=== PATIENT | female | born 1960 | race Caucasian/White ===

== ENCOUNTER → 2017-12-11 09:17 | Outpatient (CLI) | payer OTHER, BC, SELFPAY ==
--- NOTE | 2017-12-11 | DI.MG.S_ITS ---
BILATERAL DIGITAL SCREENING MAMMOGRAM 3D/2D WITH CAD: 12/11/2017 CLINICAL: Patient presents for routine screening. S/P bilateral augmentation. Comparison is made to exams dated: 10/31/2016 mammogram, 10/21/2015 mammogram, and 09/16/2014 mammogram - [facility]. The tissue of both breasts is heterogeneously dense. This may lower the sensitivity of mammography. Current study was also evaluated with a Computer Aided Detection (CAD) system. There are post operative findings in the left breast. Bilateral breast implants are intact. No significant masses, calcifications, or other findings are seen in either breast. There has been no significant interval change. IMPRESSION: NEGATIVE There is no mammographic evidence of malignancy. A 1 year screening mammogram is recommended. This exam was interpreted at Station ID: [id number]. NOTE: For mammograms, a report in lay terms will be sent to the patient. Approximately 15% of breast malignancies will not be visualized mammographically. In the management of a palpable breast mass, a negative mammogram must not discourage biopsy of a clinically suspicious lesion. Electronically Signed By: Estuardo pickering/brian:12/11/2017 15:50:24 letter sent: Normal Exam ACR BI-RADS Category 1: Negative 3341F
== END ==
PROVIDERS: Family Provider Physician Assistant; PCP Family Medicine; Visit Provider Family Medicine
DX: Z12.31 Encounter for screening mammogram for malignant neoplasm of breast (principal); Z98.82 Breast implant status
CPT/HCPCS: 77063; 77067

== ENCOUNTER → 2018-01-21 10:01 | Outpatient (CLI) | payer OTHER, BC, SELFPAY | PROVIDERS: Family Provider Physician Assistant; PCP Family Medicine; Visit Provider Family Medicine | DX: S01.301A Unspecified open wound of right ear, initial encounter (principal) | CPT/HCPCS: 87070; 87075; 87077; 87147; 87205 ==

== ENCOUNTER → 2018-03-19 10:53 | Outpatient (CLI) | payer OTHER, BC, SELFPAY ==
--- NOTE | 2018-03-19 | DI.MRI.S_ITS ---
PROCEDURE: MR LUMBAR SPINE WO CON INDICATIONS: LOW BACK PAIN TECHNIQUE: Noncontrast sagittal T1 spin echo and T2 fast echo, sagittal STIR, axial T1 and T2 fast spin echo through the lumbar spine. In cases with scoliosis, additional coronal T2 fast spin echo may be performed. COMPARISON: [facility], CR, XR LUMBAR SPINE 2 OR 3 VIEWS, 02/19/2018, 9:49. FINDINGS: Image quality: Excellent. Alignment and Curvature: There is trace L2-L3 and L3-L4 retrolisthesis. There is trace L4-L5 anterolisthesis. Bones: Reactive endplate change is noted adjacent to the L2-L3, L3-L4 and L4-L5 discs. No acute vertebral body compression fractures. Schmorl's nodes noted in the superior endplate of the L3 and L4 vertebral bodies. Spinal Cord: Conus medullaris terminates at the L1 level. Visualized cord demonstrates normal signal and size. Paraspinous Soft Tissues: No paravertebral masses. L1-L2: Normal appearance. L2-L3: Loss of disc signal and height. Mild, diffuse disc bulge. Mild narrowing of the central canal. Mild bilateral neural foraminal narrowing. No neural impingement. L3-L4: Loss of disc signal. Mild, diffuse disc bulge. Mild bilateral facet hypertrophy. Mild to moderate narrowing of the central canal. Mild bilateral neural foraminal narrowing. No neural impingement. L4-L5: Loss of disc signal and height. Mild, diffuse disc bulge. Mild to moderate facet hypertrophy. Mild to moderate narrowing of the central canal. Mild bilateral neural foraminal narrowing. No neural impingement. Focal high intensity zones noted in the posterior annulus compatible with fissures. L5-S1: Disc has a normal appearance. Mild bilateral facet hypertrophy. No central stenosis. No neural foraminal narrowing. No neural impingement. IMPRESSION: 1. Multilevel degenerative disc disease. 2. Multilevel facet arthropathy. 3. Mild to moderate L3-L4 and L4-L5 central canal narrowing. Mild L2-L3 central canal narrowing. 4. Mild bilateral L2-L3, L3-L4 and L4-L5 neural foraminal narrowing. 5. No neural impingement. 6. L4-L5 disc annulus fissures. Dictated by: Cyndee Molina MD, PhD on 03/19/2018 at 13:45 Approved by: Cyndee Molina MD, PhD on 03/19/2018 at 13:52
== END ==
PROVIDERS: Family Provider Physician Assistant; PCP Family Medicine; Visit Provider Orthopaedic Surgery
DX: M54.5 Low back pain (principal); M51.36 Other intervertebral disc degeneration, lumbar region; M47.816 Spondylosis without myelopathy or radiculopathy, lumbar region; M48.061 Spinal stenosis, lumbar region without neurogenic claudication
CPT/HCPCS: 72148

== ENCOUNTER → 2018-04-11 11:00 | Outpatient (CLI) | payer OTHER, BC, SELFPAY | PROVIDERS: Family Provider Physician Assistant; PCP Family Medicine | DX: Z23 Encounter for immunization (principal) | CPT/HCPCS: 90471; 90686 ==

== ENCOUNTER → 2018-10-15 09:26 | Outpatient (CLI) | payer OTHER, SELFPAY | PROVIDERS: PCP Family Medicine; Visit Provider Podiatrist | DX: M85.852 Other specified disorders of bone density and structure, left thigh (principal); Z78.0 Asymptomatic menopausal state; M06.9 Rheumatoid arthritis, unspecified; Z82.62 Family history of osteoporosis; Z90.722 Acquired absence of ovaries, bilateral | CPT/HCPCS: 77080 ==

== ENCOUNTER → 2018-10-27 08:32 | Outpatient (CLI) | payer OTHER, SELFPAY ==
[2018-10-27 09:36] LABS: Add Manual Diff / Slide Review NO; Basophils Absolute Auto 0 /uL (0-100); Basophils Percent Auto 1.2 % (0-2); Eosinophils Absolute Auto 100 /uL (0-450); Eosinophils Percent Auto 2.4 % (2-4); Hematocrit 39.8 % (36-46); Hemoglobin 13.5 g/dL (12.0-16.0); Lymphocytes Absolute Auto 1700 /uL (1100-4500); Lymphocytes Percent Auto 43.2 % (25-40); Mean Corpuscular Volume 88.4 fL (80-100); Monocytes Absolute Auto 300 /uL (0-900); Monocytes Percent Auto 8.3 % (3-14); Neutrophils Absolute Auto 1800 /uL (1500-7000); Neutrophils Percent Auto 44.9 % (50-75); Platelet Count 278 X10^3/uL (150-400); Red Cell Distribution Width 14.1 % (11.6-14.8)
[2018-10-27 09:44] LABS: Hemoglobin A1C% w Est Avg Glu 5.5 % (4.0-6.0)
[2018-10-27 10:10] LABS: Alanine Aminotransferase 12 IU/L (9-52); Albumin 4.7 g/dL (3.5-5.0); Albumin Globulin Ratio 1.6 (1.0-2.8); Alkaline Phosphatase 76 U/L (38-126); Aspartate Aminotransferase 29 IU/L (14-36); BUN Creatinine Ratio 14.4 (6-22); Bilirubin Total 0.4 mg/dL (0.2-1.3); Blood Urea Nitrogen 13 mg/dL (7-17); Calcium 9.9 mg/dL (8.4-10.2); Carbon Dioxide 32 mmol/L (22-32); Chloride 96 mmol/L (98-107); Cholesterol 221 mg/dL (140-199); Estimated Glomerular Filt Rate > 60.0 mL/min (>60); Glucose 98 mg/dL (70-100); HDL Cholesterol 64 mg/dL (40-60); HEMOLYSIS < 15 (0-50); LDL Cholesterol Calculated 123 mg/dL (<100); Potassium 4.7 mmol/L (3.4-5.1); Sodium 138 mmol/L (137-145); Total Protein 7.7 g/dL (6.3-8.2); Triglycerides 172 mg/dL (35-150)
[2018-10-27 10:19] LABS: Vitamin D 25 Hydroxy (D3) 71.4 ng/mL (30.0-100.0)
[2018-10-27 10:34] LABS: Thyroid Stimulating Hormone 2.96 uIU/mL (0.47-4.68)
== END ==
PROVIDERS: PCP Family Medicine; Visit Provider Psychiatry & Neurology Psychiatry
DX: Z79.899 Other long term (current) drug therapy (principal); E78.5 Hyperlipidemia, unspecified; M85.811 Other specified disorders of bone density and structure, right shoulder; R73.9 Hyperglycemia, unspecified
CPT/HCPCS: 36415; 80053; 80061; 82306; 83036; 84443; 85025

== ENCOUNTER → 2018-12-24 09:23 | Outpatient (CLI) | payer OTHER, SELFPAY ==
--- NOTE | 2018-12-24 | DI.MG.S_ITS ---
BILATERAL DIGITAL SCREENING MAMMOGRAM 3D/2D WITH CAD WITH AUGMENTATION: 12/24/2018 CLINICAL: Patient presents for routine screening. S/P bilateral augmentation. Comparison is made to exams dated: 12/11/2017 mammogram, 10/31/2016 mammogram, and 10/21/2015 mammogram - [facility]. The tissue of both breasts is heterogeneously dense. This may lower the sensitivity of mammography. Current study was also evaluated with a Computer Aided Detection (CAD) system. Bilateral breast implants are stable. There are benign post operative findings in the left breast. No significant masses, calcifications, or other findings are seen in either breast. There has been no significant interval change. IMPRESSION: There is no mammographic evidence of malignancy. A 1 year screening mammogram is recommended. This exam was interpreted at Station ID: [id number]. NOTE: For mammograms, a report in lay terms will be sent to the patient. Approximately 15% of breast malignancies will not be visualized mammographically. In the management of a palpable breast mass, a negative mammogram must not discourage biopsy of a clinically suspicious lesion. Electronically Signed By: Michelle mendez/brian:12/24/2018 10:06:27 letter sent: Normal Exam ACR BI-RADS Category 2: Benign Finding(s) 3342F
== END ==
PROVIDERS: PCP Family Medicine; Visit Provider Family Medicine
DX: Z12.31 Encounter for screening mammogram for malignant neoplasm of breast (principal); Z98.82 Breast implant status
CPT/HCPCS: 77063; 77067

== ENCOUNTER → 2019-03-27 13:45 | Outpatient (CLI) | payer OTHER, SELFPAY | PROVIDERS: PCP Family Medicine | DX: Z23 Encounter for immunization (principal) | CPT/HCPCS: 90471; 90686 ==

== ENCOUNTER → 2019-06-02 07:47 | Outpatient (CLI) | payer OTHER, SELFPAY ==
--- NOTE | 2019-06-02 08:01 | DI.RAD.S_ITS ---
PROCEDURE: XR HAND LT MIN 3V INDICATIONS: pain after fall TECHNIQUE: 3 views of the hand(s) acquired. COMPARISON: [facility], CR, FINGER LT, 06/20/2010, 16:23. FINDINGS: Bones: No fractures or dislocations. Carpal bones are normally aligned. No suspicious bony lesions. Mild degenerative joint disease at the radiocarpal joint, triscaphe joint, first carpometacarpal joint, first metacarpal phalangeal joint and multiple interphalangeal joints. Soft tissues: No suspicious soft tissue calcifications. IMPRESSION: 1. No fractures. 2. Mild degenerative joint disease. Dictated by: Tab Marion M.D. on 06/02/2019 at 9:55 Approved by: Tab Marion M.D. on 06/02/2019 at 9:59
== END ==
PROVIDERS: PCP Family Medicine; Visit Provider Family Medicine
DX: M79.642 Pain in left hand (principal); M19.042 Primary osteoarthritis, left hand
CPT/HCPCS: 73130

== ENCOUNTER → 2019-12-01 07:15 | Outpatient (CLI) | payer OTHER, SELFPAY ==
[2019-12-01 08:19] LABS: Add Manual Diff / Slide Review NO; Basophils Absolute Auto 0 /uL (0-100); Basophils Percent Auto 0.9 % (0-2); Eosinophils Absolute Auto 100 /uL (0-450); Eosinophils Percent Auto 2.1 % (2-4); Hematocrit 37.4 % (36-46); Hemoglobin 12.7 g/dL (12.0-16.0); Lymphocytes Absolute Auto 1600 /uL (1100-4500); Lymphocytes Percent Auto 38.2 % (25-40); Mean Corpuscular HGB Conc 33.9 % (30-36); Mean Corpuscular Hemoglobin 30.7 PG (26-34); Mean Corpuscular Volume 90.4 fL (80-100); Monocytes Absolute Auto 400 /uL (0-900); Monocytes Percent Auto 9.2 % (3-14); Neutrophils Absolute Auto 2100 /uL (1500-7000); Neutrophils Percent Auto 49.6 % (50-75); Platelet Count 235 X10^3/uL (150-400); Red Blood Cell Count 4.14 X10^6/uL (4.0-5.2); White Blood Cell Count 4.1 X10^3/uL (4.5-11.0)
[2019-12-01 09:05] LABS: Alanine Aminotransferase 12 IU/L (<35); Albumin 4.2 g/dL (3.5-5.0); Albumin Globulin Ratio 1.8 (1.0-2.8); Alkaline Phosphatase 84 U/L (38-126); Aspartate Aminotransferase 29 IU/L (14-36); Bilirubin Total 0.3 mg/dL (0.2-1.3); Blood Urea Nitrogen 19 mg/dL (7-17); Calcium 9.4 mg/dL (8.4-10.2); Carbon Dioxide 27 mmol/L (22-32); Chloride 104 mmol/L (98-107); Cholesterol 193 mg/dL (140-199); Estimated Glomerular Filt Rate > 60.0 mL/min (>60); Globulin 2.4 g/dL (1.7-4.1); Glucose 101 mg/dL (70-100); HDL Cholesterol 52 mg/dL (40-60); HEMOLYSIS < 15 (0-50); LDL Cholesterol Calculated 104 mg/dL (<100); Potassium 4.1 mmol/L (3.4-5.1); Sodium 139 mmol/L (137-145); Total Protein 6.6 g/dL (6.3-8.2); Triglycerides 184 mg/dL (35-150)
[2019-12-01 09:22] LABS: Thyroid Stimulating Hormone 3.17 uIU/mL (0.47-4.68)
== END ==
PROVIDERS: PCP Family Medicine; Referring Provider Family Medicine; Visit Provider Family Medicine
DX: E78.5 Hyperlipidemia, unspecified (principal); F33.2 Major depressive disorder, recurrent severe without psychotic features; K58.9 Irritable bowel syndrome, unspecified
CPT/HCPCS: 36415; 80053; 80061; 84443; 85025

== ENCOUNTER → 2020-01-13 13:54 | Outpatient (CLI) | payer OTHER, SELFPAY ==
[2020-01-15 08:12] LABS: COVID19 Sendout Not Detected (Not Detect)
== END ==
PROVIDERS: PCP Family Medicine; Visit Provider Physician Assistant
DX: Z11.59 Encounter for screening for other viral diseases (principal); R19.7 Diarrhea, unspecified; R43.2 Parageusia; R51 Headache
CPT/HCPCS: 87635

== ENCOUNTER → 2020-01-21 16:49 | Outpatient (CLI) | payer OTHER, SELFPAY ==
[2020-01-21 17:17] LABS: Add Manual Diff / Slide Review NO; Basophils Absolute Auto 0 /uL (0-100); Basophils Percent Auto 0.5 % (0-2); Eosinophils Absolute Auto 100 /uL (0-450); Eosinophils Percent Auto 1.5 % (2-4); Hematocrit 34.5 % (36-46); Hemoglobin 11.7 g/dL (12.0-16.0); Lymphocytes Absolute Auto 1400 /uL (1100-4500); Mean Corpuscular Hemoglobin 30.2 PG (26-34); Mean Corpuscular Volume 88.8 fL (80-100); Monocytes Absolute Auto 400 /uL (0-900); Monocytes Percent Auto 5.4 % (3-14); Neutrophils Absolute Auto 4600 /uL (1500-7000); Neutrophils Percent Auto 70.6 % (50-75); Platelet Count 280 X10^3/uL (150-400); Red Blood Cell Count 3.89 X10^6/uL (4.0-5.2); Red Cell Distribution Width 14.7 % (11.6-14.8); White Blood Cell Count 6.6 X10^3/uL (4.5-11.0)
[2020-01-21 17:34] LABS: Alanine Aminotransferase 13 IU/L (<35); Albumin 3.9 g/dL (3.5-5.0); Albumin Globulin Ratio 1.6 (1.0-2.8); Alkaline Phosphatase 76 U/L (38-126); Aspartate Aminotransferase 28 IU/L (14-36); BUN Creatinine Ratio 22.1 (6-22); Bilirubin Total 0.3 mg/dL (0.2-1.3); Blood Urea Nitrogen 15 mg/dL (7-17); C-Reactive Protein Quant 0.6 mg/dL (<1.0); Calcium 9.3 mg/dL (8.4-10.2); Carbon Dioxide 26 mmol/L (22-32); Chloride 106 mmol/L (98-107); Estimated Glomerular Filt Rate > 60.0 mL/min (>60); Globulin 2.4 g/dL (1.7-4.1); Glucose 83 mg/dL (80-110); HEMOLYSIS < 15 (0-50); Potassium 4.3 mmol/L (3.4-5.1); Sodium 136 mmol/L (137-145); Total Protein 6.3 g/dL (6.3-8.2)
[2020-01-21 17:35] LABS: Erythrocyte Sedimentation Rate 7 MM/HR (0-20)
== END ==
PROVIDERS: PCP Family Medicine; Referring Provider Family Medicine; Visit Provider Family Medicine
DX: R19.7 Diarrhea, unspecified (principal); M79.10 Myalgia, unspecified site
CPT/HCPCS: 36415; 80053; 85025; 85651; 86140

== ENCOUNTER → 2020-01-22 10:05 | Outpatient (CLI) | payer OTHER, SELFPAY | PROVIDERS: PCP Family Medicine; Referring Provider Family Medicine; Visit Provider Family Medicine | DX: R19.7 Diarrhea, unspecified (principal) | CPT/HCPCS: 87045; 87177; 87899 ==

== ENCOUNTER → 2020-03-31 10:00 | Outpatient (CLI) | payer OTHER, SELFPAY ==
[2020-03-31 11:23] LABS: Appearance Urine UA CLEAR; Bilirubin Urine UA NEGATIVE (NEGATIVE); Color Urine UA YELLOW; Glucose Urine UA NEGATIVE (Negative); Ketones Urine UA NEGATIVE (NEGATIVE); Leukocyte Esterase Urine UA 3+ (NEGATIVE); Nitrite Urine UA POSITIVE (Negative); Occult Blood Urine UA TRACE-LYSED (Negative); Protein Urine UA NEGATIVE (Negative); Specific Gravity Urine UA 1.015 (1.000-1.035); Urobilinogen Urine UA 0.2 E.U./dL (0.2)
[2020-03-31 11:40] LABS: pH Urine UA 5.5 (4.5-8.0)
[2020-03-31 12:23] LABS: Bacteria Urine Few (2-10); Culture Indicated Urine Specimen Cultured; RBC Urine 1-5/HPF (0-5/HPF); Squamous Epithelial Cell Urine 0-1 /HPF (0-5/HPF); WBC Urine >100/HPF (0-5/HPF)
== END ==
PROVIDERS: PCP Family Medicine; Visit Provider Family Medicine
DX: R30.0 Dysuria (principal); R35.0 Frequency of micturition; R39.15 Urgency of urination
CPT/HCPCS: 81001; 87077; 87086; 87186

== ENCOUNTER → 2020-04-07 08:00 | Outpatient (CLI) | payer OTHER, SELFPAY | PROVIDERS: PCP Family Medicine; Referring Provider Internal Medicine; Visit Provider Internal Medicine | DX: Z23 Encounter for immunization (principal) | CPT/HCPCS: 90471; 90686 ==

== ENCOUNTER → 2020-04-11 11:44 | Outpatient (CLI) | payer OTHER, SELFPAY ==
[2020-04-12 00:26] LABS: COVID19 Sendout Not Detected (Not Detect)
== END ==
PROVIDERS: PCP Family Medicine; Visit Provider Physician Assistant
DX: Z11.59 Encounter for screening for other viral diseases (principal)
CPT/HCPCS: 87635

== ENCOUNTER → 2020-06-24 11:01 | Outpatient (CLI) | payer OTHER, SELFPAY ==
[2020-06-24] MEDS: COVID-19 VACC(MODERNA-1)/PF 100 MCG/0.5 ML VIAL IM (11:20)
== END ==
PROVIDERS: PCP Family Medicine; Visit Provider Internal Medicine
DX: Z23 Encounter for immunization (principal)
CPT/HCPCS: 0011A; 91301

== ENCOUNTER → 2020-07-22 15:11 | Outpatient (CLI) | payer OTHER, SELFPAY ==
[2020-07-22] MEDS: COVID-19 VACC #2, MRNA(MOD) 100 MCG/0.5 ML VIAL IM (15:16)
== END ==
PROVIDERS: PCP Family Medicine; Visit Provider Internal Medicine
DX: Z23 Encounter for immunization (principal)
CPT/HCPCS: 0012A; 91301

== ENCOUNTER → 2020-11-03 16:14 | Outpatient (CLI) | payer OTHER, SELFPAY ==
[2020-11-03 18:09] LABS: C-Reactive Protein Quant 0.9 mg/dL (<1.0); Creatine Kinase 51 U/L (30-135)
[2020-11-03 19:00] LABS: TSH w/ Reflex to FT4 1.61 uIU/mL (0.47-4.68)
[2020-11-03 19:46] LABS: Erythrocyte Sedimentation Rate 7 MM/HR (0-20)
== END ==
PROVIDERS: PCP Family Medicine; Referring Provider Family Medicine; Visit Provider Family Medicine
DX: M79.10 Myalgia, unspecified site (principal)
CPT/HCPCS: 36415; 82550; 84443; 85651; 86140

== ENCOUNTER → 2020-11-16 09:43 | Outpatient (CLI) | payer OTHER, SELFPAY ==
--- NOTE | 2020-11-16 | DI.MG.S_ITS ---
BILATERAL DIGITAL DIAGNOSTIC MAMMOGRAM 3D/2D WITH AUGMENTATION: 11/16/2020 CLINICAL: Left breast tenderness. Comparison is made to exams dated: 12/24/2018 mammogram, 12/11/2017 mammogram, and 10/31/2016 mammogram - [facility]. The tissue of both breasts is heterogeneously dense. This may lower the sensitivity of mammography. No significant masses, calcifications, or other findings are seen in either breast. IMPRESSION: INCOMPLETE: NEEDS ADDITIONAL IMAGING EVALUATION There is no abnormality seen in the left breast to correspond with the pain in the sub-areolar depth, however, ultrasound is recommended. The implants show no evidence of rupture. Ultrasound will be performed immediately following the current exam. This exam was interpreted at Station ID: [id number]. NOTE: For mammograms, a report in lay terms will be sent to the patient. Approximately 15% of breast malignancies will not be visualized mammographically. In the management of a palpable breast mass, a negative mammogram must not discourage biopsy of a clinically suspicious lesion. Electronically Signed By: Estuardo Cobb M.D. ddada/:11/16/2020 10:19:44 ACR BI-RADS Category 0: Incomplete 3340F
--- NOTE | 2020-11-16 09:44 | DI.US.S_ITS ---
LIMITED ULTRASOUND OF LEFT BREAST: 11/16/2020 CLINICAL: Focal left breast pain. Comparison is made to exams dated: 11/16/2020 mammogram, 12/24/2018 mammogram, 12/11/2017 mammogram, 10/31/2016 mammogram, 10/21/2015 mammogram, and 09/16/2014 mammogram - [facility]. Color flow and real-time ultrasound of the left breast retroareolar were performed on the areas of interest. No discrete solid mass lesion identified in the area of focal retroareolar pain. There are 2 small incidentally noted simple cysts in the retroareolar region measuring up to 1.0 cm and 0.9 cm. IMPRESSION: NEGATIVE There is no sonographic evidence of malignancy. No sonographic correlate to patient's retroareolar pain. Clinical followup is recommended. A 1 year screening mammogram is recommended. This exam was interpreted at Station ID: [id number]. Electronically Signed By: Estuardo Cobb M.D. ddada/:11/16/2020 10:48:19 letter sent: Clinical Evaluation Ultrasound BI-RADS: 1 Negative
== END ==
PROVIDERS: PCP Family Medicine; Referring Provider Family Medicine; Visit Provider Family Medicine
DX: N64.4 Mastodynia (principal)
CPT/HCPCS: 76642; 77066; G0279

== ENCOUNTER 2020-12-14 13:59 | Emergency (ER) | payer OTHER, SELFPAY ==
[2020-12-14 14:04] VITALS: BP 156/89; PULSE 70; RESP 17; TEMP 36.5; O2SAT 98
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
[2020-12-14] MEDS: IBUPROFEN 400 MG TABLET 800 MG PO (16:42)
[2020-12-14 17:13] VITALS: BP 162/85; PULSE 72; RESP 18
== END 2020-12-14 17:13 | disposition home or self-care (01) ==
PROVIDERS: Emergency Provider Emergency Medicine; PCP Family Medicine
DX: S20.212A Contusion of left front wall of thorax, initial encounter (principal); V49.40XA Driver injured in collision with unspecified motor vehicles in traffic accident, initial encounter
CPT/HCPCS: 71101; 99283

== ENCOUNTER → 2021-01-16 14:12 | Outpatient (CLI) | payer OTHER, SELFPAY ==
--- NOTE | 2021-01-16 14:19 | DI.RAD.S_ITS ---
PROCEDURE: XR ELBOW RT MIN 3V INDICATIONS: right elbow pain/injury/fall TECHNIQUE: 3 views of the elbow were acquired. COMPARISON: None. FINDINGS: Bones: No acute fracture identified. Severe osteoarthritis. Bulky osteophyte formation and icvw-ur-amqu appearance in the ulnotrochlear compartment. Soft tissues: No elbow joint effusion. No suspicious soft tissue calcifications. IMPRESSION: No definite fracture seen although advanced arthritic changes limit study sensitivity. Dictated by: Simone Herrera M.D. on 01/16/2021 at 15:33 Approved by: Simone Herrera M.D. on 01/16/2021 at 15:35
[2021-01-16 15:08] LABS: Hemoglobin A1C% w Est Avg Glu 5.6 % (4.0-6.0)
[2021-01-16 15:14] LABS: Add Manual Diff / Slide Review NO; Basophils Absolute Auto 100 /uL (0-100); Basophils Percent Auto 1.8 % (0-2); Eosinophils Absolute Auto 100 /uL (0-450); Eosinophils Percent Auto 1.6 % (2-4); Hemoglobin 12.7 g/dL (12.0-16.0); Lymphocytes Absolute Auto 1600 /uL (1100-4500); Lymphocytes Percent Auto 30.1 % (25-40); Mean Corpuscular HGB Conc 32.5 % (30-36); Mean Corpuscular Hemoglobin 29.4 PG (26-34); Mean Corpuscular Volume 90.7 fL (80-100); Monocytes Absolute Auto 300 /uL (0-900); Monocytes Percent Auto 6.1 % (3-14); Neutrophils Absolute Auto 3200 /uL (1500-7000); Neutrophils Percent Auto 60.4 % (50-75); Platelet Count 294 X10^3/uL (150-400); White Blood Cell Count 5.3 X10^3/uL (4.5-11.0)
[2021-01-16 15:28] LABS: Alanine Aminotransferase 13 IU/L (<35); Albumin 4.6 g/dL (3.5-5.0); Albumin Globulin Ratio 1.5 (1.0-2.8); Alkaline Phosphatase 87 U/L (38-126); Aspartate Aminotransferase 35 IU/L (14-36); BUN Creatinine Ratio 19.3 (6-22); Bilirubin Total 0.4 mg/dL (0.2-1.3); Blood Urea Nitrogen 16 mg/dL (7-17); Calcium 10.3 mg/dL (8.4-10.2); Carbon Dioxide 25 mmol/L (22-32); Chloride 104 mmol/L (98-107); Cholesterol 231 mg/dL (140-199); Estimated Glomerular Filt Rate > 60.0 mL/min (>60); Glucose 96 mg/dL (80-110); HDL Cholesterol 57 mg/dL (40-60); HEMOLYSIS < 15 (0-50); LDL Cholesterol Calculated 119 mg/dL (<100); Potassium 4.8 mmol/L (3.4-5.1); Sodium 138 mmol/L (137-145); Total Protein 7.6 g/dL (6.3-8.2); Triglycerides 275 mg/dL (35-150)
[2021-01-16 15:44] LABS: Creatinine Urine Random 66.6 mg/dL
[2021-01-16 15:52] LABS: Microalbumin Urine Random < 0.6 mg/dL (0-1.6)
[2021-01-16 15:58] LABS: Thyroid Stimulating Hormone 0.875 uIU/mL (0.47-4.68)
[2021-01-16 16:00] LABS: Vitamin D 25 Hydroxy (D3) 80.2 ng/mL (30.0-100.0)
[2021-01-16 16:15] LABS: Vitamin B12 769 pg/mL (239-931)
== END ==
PROVIDERS: PCP Family Medicine; Referring Provider Family Medicine; Visit Provider Family Medicine
DX: S59.901A Unspecified injury of right elbow, initial encounter (principal); W19.XXXA Unspecified fall, initial encounter; E03.9 Hypothyroidism, unspecified; E78.5 Hyperlipidemia, unspecified; M79.10 Myalgia, unspecified site; R23.8 Other skin changes; R73.09 Other abnormal glucose
CPT/HCPCS: 36415; 73080; 80053; 80061; 82043; 82306; 82570; 82607; 83036; 84443; 85025; 85610

== ENCOUNTER → 2021-01-16 14:16 | Outpatient (CLI) | payer OTHER, SELFPAY ==
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
== END ==
PROVIDERS: PCP Family Medicine; Referring Provider Family Medicine; Visit Provider Family Medicine
DX: M54.2 Cervicalgia (principal); S13.4XXA Sprain of ligaments of cervical spine, initial encounter; V89.2XXA Person injured in unspecified motor-vehicle accident, traffic, initial encounter
CPT/HCPCS: 72040

== ENCOUNTER → 2021-03-31 19:37 | Outpatient (CLI) | payer OTHER, SELFPAY | PROVIDERS: PCP Family Medicine; Referring Provider Internal Medicine; Visit Provider Internal Medicine | DX: Z23 Encounter for immunization (principal) | CPT/HCPCS: 90471; 90686 ==

== ENCOUNTER → 2021-04-05 19:14 | Outpatient (CLI) | payer OTHER, SELFPAY ==
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
== END ==
PROVIDERS: PCP Family Medicine; Referring Provider Family Medicine; Visit Provider Family Medicine
DX: M50.121 Cervical disc disorder at C4-C5 level with radiculopathy (principal); M48.02 Spinal stenosis, cervical region
CPT/HCPCS: 72141

== ENCOUNTER → 2021-06-19 10:11 | Outpatient (CLI) | payer OTHER, SELFPAY ==
[2021-06-19 14:46] LABS: COVID19 -Nasal RAPID Negative (Negative)
== END ==
PROVIDERS: PCP Family Medicine; Referring Provider Physician Assistant; Visit Provider Physician Assistant
DX: Z20.822 Contact with and (suspected) exposure to COVID-19 (principal); R53.83 Other fatigue
CPT/HCPCS: 87635

== ENCOUNTER → 2021-10-05 16:36 | Outpatient (CLI) | payer OTHER, SELFPAY ==
[2021-10-05 19:55] LABS: Influenza A - CEPHEID Flu A POSITIVE (NEGATIVE); Influenza B - CEPHEID Flu B NEGATIVE (NEGATIVE)
[2021-10-05 20:02] LABS: COVID-19 CEPHEID PCR (VTM/NP) Negative (Negative)
== END ==
PROVIDERS: PCP Family Medicine; Visit Provider Physician Assistant
DX: R50.9 Fever, unspecified (principal)
CPT/HCPCS: 0240U

== ENCOUNTER → 2021-11-20 07:32 | Outpatient (CLI) | payer OTHER, SELFPAY ==
--- NOTE | 2021-11-20 | DI.MG.S_ITS ---
BILATERAL DIGITAL SCREENING MAMMOGRAM 3D/2D WITH CAD WITH AUGMENTATION: 11/20/2021 CLINICAL: Routine screening. Comparison is made to exams dated: 11/16/2020 mammogram, 12/24/2018 mammogram, and 12/11/2017 mammogram - [facility]. The tissue of both breasts is heterogeneously dense. This may lower the sensitivity of mammography. Current study was also evaluated with a Computer Aided Detection (CAD) system. There is a biopsy clip in the right breast. There also are benign post operative findings in the left breast. No significant masses, calcifications, or other findings are seen in either breast. There has been no significant interval change. IMPRESSION: BENIGN There is no mammographic evidence of malignancy. A 1 year screening mammogram is recommended. This exam was interpreted at Station ID: [id number]. NOTE: For mammograms, a report in lay terms will be sent to the patient. Approximately 15% of breast malignancies will not be visualized mammographically. In the management of a palpable breast mass, a negative mammogram must not discourage biopsy of a clinically suspicious lesion. Electronically Signed By: Drew fu/brian:11/20/2021 09:33:44 letter sent: Normal Exam ACR BI-RADS Category 2: Benign Finding(s) 3342F
== END ==
PROVIDERS: PCP Family Medicine; Referring Provider Family Medicine; Visit Provider Family Medicine
DX: Z12.31 Encounter for screening mammogram for malignant neoplasm of breast (principal)
CPT/HCPCS: 77063; 77067

== ENCOUNTER → 2022-04-12 12:03 | Outpatient (CLI) | payer OTHER, SELFPAY ==
[2022-04-12 13:03] LABS: Add Manual Diff / Slide Review NO; Basophils Absolute Auto 0 /uL (0-100); Basophils Percent Auto 0.5 % (0-2); Eosinophils Absolute Auto 0 /uL (0-450); Eosinophils Percent Auto 0.4 % (2-4); Hematocrit 36.4 % (36-46); Hemoglobin 12.3 g/dL (12.0-16.0); Lymphocytes Absolute Auto 1600 /uL (1100-4500); Lymphocytes Percent Auto 25.7 % (25-40); Mean Corpuscular HGB Conc 33.8 % (30-36); Mean Corpuscular Hemoglobin 30.3 PG (26-34); Mean Corpuscular Volume 89.5 fL (80-100); Monocytes Absolute Auto 400 /uL (0-900); Monocytes Percent Auto 6.2 % (3-14); Neutrophils Absolute Auto 4200 /uL (1500-7000); Neutrophils Percent Auto 67.2 % (50-75); Platelet Count 321 X10^3/uL (150-400); Red Blood Cell Count 4.06 X10^6/uL (4.0-5.2); Red Cell Distribution Width 14.3 % (11.6-14.8); White Blood Cell Count 6.2 X10^3/uL (4.5-11.0)
[2022-04-12 13:14] LABS: Hemoglobin A1C% w Est Avg Glu 5.6 % (4.0-6.0)
[2022-04-12 13:58] LABS: Prothrombin Time 11.5 SECONDS (10.1-12.7)
[2022-04-12 14:14] LABS: Alanine Aminotransferase 15 IU/L (<35); Albumin 4.4 g/dL (3.5-5.0); Albumin Globulin Ratio 1.4 (1.0-2.8); Alkaline Phosphatase 97 U/L (38-126); Aspartate Aminotransferase 25 IU/L (14-36); BUN Creatinine Ratio 18.4 (6-22); Bilirubin Total 0.3 mg/dL (0.2-1.3); Blood Urea Nitrogen 16 mg/dL (7-17); Calcium 9.4 mg/dL (8.4-10.2); Carbon Dioxide 24 mmol/L (22-32); Chloride 106 mmol/L (98-107); Cholesterol 230 mg/dL (140-199); Estimated Glomerular Filt Rate > 60 mL/min (>60); Globulin 3.1 g/dL (1.7-4.1); Glucose 99 mg/dL (80-110); HDL Cholesterol 51 mg/dL (40-60); HEMOLYSIS < 15 (0-50); LDL Cholesterol Calculated 123 mg/dL (<100); Potassium 3.7 mmol/L (3.4-5.1); Sodium 139 mmol/L (137-145); Total Protein 7.5 g/dL (6.3-8.2); Triglycerides 281 mg/dL (35-150)
[2022-04-12 15:39] LABS: Microalbumin Urine Random 1.1 mg/dL (0-1.6)
[2022-04-12 15:43] LABS: Microalbumi Creatinin Ratio Ur 4.2 ug/mg CR (<30)
[2022-04-12 16:01] LABS: Thyroid Stimulating Hormone 0.948 uIU/mL (0.47-4.68)
== END ==
PROVIDERS: PCP Family Medicine; Referring Provider Family Medicine; Visit Provider Family Medicine
DX: E03.9 Hypothyroidism, unspecified (principal); E78.5 Hyperlipidemia, unspecified; G43.909 Migraine, unspecified, not intractable, without status migrainosus; M79.10 Myalgia, unspecified site; R23.3 Spontaneous ecchymoses; R73.09 Other abnormal glucose
CPT/HCPCS: 36415; 80053; 80061; 82043; 82570; 83036; 84443; 85025; 85610

== ENCOUNTER → 2022-07-06 10:03 | Outpatient (CLI) | payer OTHER, SELFPAY ==
--- NOTE | 2022-07-06 10:04 | DI.RAD.S_ITS ---
PROCEDURE: XR SHOULDER RT MIN 2V INDICATIONS: shulder pain TECHNIQUE: 3 views of the shoulder were acquired. COMPARISON: None. FINDINGS: Bones: No acute fractures or dislocations. No suspicious bony lesions. Visualized ribs appear intact. Moderate degenerative changes of the right acromioclavicular and glenohumeral joints. Subchondral degenerative cystic changes of the right humeral head. Coracoclavicular and acromioclavicular intervals are maintained. Soft tissues: No suspicious soft tissue calcifications. IMPRESSION: Right shoulder without acute fracture or dislocation. Moderate right acromioclavicular and glenohumeral osteoarthrosis. Dictated by: Tavo Morgan M.D. on 07/06/2022 at 15:16 Approved by: Tavo Morgan M.D. on 07/06/2022 at 15:17
== END ==
PROVIDERS: PCP Family Medicine; Referring Provider Family Medicine; Visit Provider Family Medicine
DX: M19.011 Primary osteoarthritis, right shoulder
CPT/HCPCS: 73030

== ENCOUNTER → 2023-01-04 17:19 | Outpatient (CLI) | payer OTHER, SELFPAY ==
--- NOTE | 2023-01-04 17:20 | DI.MRI.S_ITS ---
PROCEDURE: MR SHOULDER RT WO CON INDICATIONS: rotator cuff tear TECHNIQUE: Noncontrast oblique coronal T2 fast spin echo with fat saturation, oblique sagittal T1 spin echo and T2 fast spin echo with fat saturation, axial T1 spin echo and T2 fast spin echo with fat saturation through the shoulder. COMPARISON: [facility], CR, XR SHOULDER RT MIN 2V, 07/06/2022, 10:34. FINDINGS: Image quality: Excellent. Rotator cuff: There is moderate supraspinatus tendinosis. Partial thickness tear is in the distal supraspinatus tendon involving the bursal surface and footprint. No tendon retraction. No supraspinatus muscle atrophy. There is moderate infraspinatus tendinosis. Partial thickness tear is seen along the articular surface and footprint of the infraspinatus tendon. No tendon retraction or muscle atrophy. There is moderate subscapularis tendinosis. No discrete tendon tear. No muscle atrophy. Bones and bursae: No bone marrow contusions or fractures. Moderate acromioclavicular and glenohumeral joint degeneration. The acromion demonstrates conventional anatomy, without an os acromiale. There is subcoracoid bursal fluid collection, consistent with bursitis. Capsule and soft tissues: There is small SLAP lesion in the superior labrum at the biceps anchor. There is degenerative tear of the posterior labrum, and to a lesser degree the anterior labrum. There is mild tendinosis of the long head of the biceps tendon which demonstrates normal location and morphology. The rotator interval appears normal, without fibrosis. The coracohumeral ligament is normal in thickness. IMPRESSION: 1. Moderate supraspinatus, infraspinatus and subscapularis tendinosis. No high-grade tendon tear or rotator cuff muscle atrophy. 2. Moderate acromioclavicular and glenohumeral joint degeneration. 3. Mild tendinosis of the long head of the biceps tendon. 4. Subcoracoid bursitis. 5. Slap lesion in the superior labrum. 6. Degenerative tear of the posterior and anterior labrum. Dictated by: Tab Marion M.D. on 01/07/2023 at 15:37 Approved by: Tab Marion M.D. on 01/07/2023 at 16:00
== END ==
PROVIDERS: PCP Family Medicine; Referring Provider Anesthesiology Pain Medicine; Visit Provider Anesthesiology Pain Medicine
DX: M75.111 Incomplete rotator cuff tear or rupture of right shoulder, not specified as traumatic (principal); M19.011 Primary osteoarthritis, right shoulder; M75.51 Bursitis of right shoulder; S43.431A Superior glenoid labrum lesion of right shoulder, initial encounter; S43.491A Other sprain of right shoulder joint, initial encounter
CPT/HCPCS: 73221

== ENCOUNTER → 2023-01-21 15:59 | Outpatient (CLI) | payer OTHER, SELFPAY ==
--- NOTE | 2023-01-21 | DI.MG.S_ITS ---
BILATERAL DIGITAL SCREENING MAMMOGRAM 3D/2D WITH CAD WITH AUGMENTATION: 01/21/2023 CLINICAL: Routine screening. Comparison is made to exams dated: 11/20/2021 mammogram, 11/16/2020 mammogram, 12/24/2018 mammogram, and 12/11/2017 mammogram - [facility]. Both breasts are heterogeneously dense, which may obscure small masses (category c / 51-75% glandular tissue). Current study was also evaluated with a Computer Aided Detection (CAD) system. Bilateral breast implants are stable. There is a biopsy clip in the right breast. There also are benign post operative findings in the left breast. No significant masses, calcifications, or other findings are seen in either breast. There has been no significant interval change. IMPRESSION: BENIGN There is no mammographic evidence of malignancy. A 1 year screening mammogram is recommended. Based on Tyrer-Cuzick model (a risk assessment model), the patient's lifetime risk is 39.1% and her 10 year risk is 19.7%. If a patient has an elevated risk, a more comprehensive evaluation should be considered and/or a referral to a genetic counselor. The [place] [employer], [employer], and NCCN Guidelines advise the consideration of Breast MRI as an adjunct to screening mammography in patients whose Lifetime risk to develop breast cancer is 20% or higher. This exam was interpreted at Station ID: [id number]. NOTE: For mammograms, a report in lay terms will be sent to the patient. Approximately 15% of breast malignancies will not be visualized mammographically. In the management of a palpable breast mass, a negative mammogram must not discourage biopsy of a clinically suspicious lesion. Electronically Signed By: Nico felipe/brian:01/22/2023 20:29:12 letter sent: Normal Exam ACR BI-RADS Category 2: Benign Finding(s) 3342F
== END ==
PROVIDERS: PCP Family Medicine; Referring Provider Family Medicine; Visit Provider Family Medicine
DX: Z12.31 Encounter for screening mammogram for malignant neoplasm of breast (principal)
CPT/HCPCS: 77063; 77067

== ENCOUNTER → 2023-02-15 14:46 | Outpatient (CLI) | payer OTHER, SELFPAY ==
--- NOTE | 2023-02-15 14:48 | DI.RAD.S_ITS ---
PROCEDURE: XR CERVICAL SPINE 2V OR 3V INDICATIONS: S/p fall, injury TECHNIQUE: Three views of the cervical spine were acquired. COMPARISON: [facility], CR, XR CERVICAL SPINE 2V OR 3V, 01/16/2021, 14:33. FINDINGS: Bones: No acute fractures or dislocations to the T1 level. The lateral masses of C1 appear intact on the odontoid view. No suspicious bony lesions. Multilevel spondylosis. Soft tissues: No prevertebral soft tissue swelling. IMPRESSION: No acute osseous abnormality. Multilevel spondylosis. If the symptoms persist, consider cross sectional imaging such as MRI or CT for further assessment. Approved by: Drew Herrmann M.D. on 02/15/2023 at 16:03
--- NOTE | 2023-02-15 14:48 | DI.RAD.S_ITS ---
PROCEDURE: XR ANKLE LT MIN 3V INDICATIONS: Bruising/Injury TECHNIQUE: 3 views of the ankle were acquired. COMPARISON: None. FINDINGS: Bones: No acute fractures or dislocations. Ankle mortise is normally aligned. No suspicious bony lesions. Small posterior and plantar calcaneal enthesophytes. Soft tissues: Soft tissue edema surrounding the ankle is most prominent over the lateral malleolus. IMPRESSION: No acute osseous abnormality. Nonspecific soft tissue edema. If clinical suspicion and/or symptoms persist, additional imaging with repeat plain films, or advanced imaging (e.g. CT, MRI) may be helpful for further assessment. Approved by: Drew Herrmann M.D. on 02/15/2023 at 16:05
== END ==
PROVIDERS: PCP Family Medicine; Referring Provider Family Medicine; Visit Provider Family Medicine
DX: S99.912A Unspecified injury of left ankle, initial encounter (principal); R60.0 Localized edema; S19.9XXA Unspecified injury of neck, initial encounter; M50.20 Other cervical disc displacement, unspecified cervical region; M47.812 Spondylosis without myelopathy or radiculopathy, cervical region; W19.XXXA Unspecified fall, initial encounter
CPT/HCPCS: 72040; 73610

== ENCOUNTER → 2023-04-10 12:48 | Outpatient (CLI) | payer OTHER, SELFPAY ==
--- NOTE | 2023-04-10 12:53 | DI.RAD.S_ITS ---
PROCEDURE: XR KNEE RT 3V INDICATIONS: Right knee injury TECHNIQUE: 3 views of the knee were acquired. COMPARISON: [facility], , KNEE 3V RIGHT, 09/07/2013, 14:30. FINDINGS: Bones: No fractures or dislocations. No suspicious bony lesions. No significant osteophytosis. At least mild medial compartment joint space loss. Soft tissues: No joint effusion. No suspicious soft tissue calcifications. IMPRESSION: At least mild medial compartment joint space loss. No evidence acute bony abnormality. If clinical suspicion and/or symptoms persist, further assessment with repeat plain films, or advanced imaging (e.g., CT, MRI, or bone scan) may be helpful for further assessment. Dictated by: Dung Atkinson M.D. on 04/10/2023 at 14:25 Approved by: Dung Atkinson M.D. on 04/10/2023 at 14:27
== END ==
PROVIDERS: PCP Family Medicine; Referring Provider Nurse Practitioner Family; Visit Provider Nurse Practitioner Family
DX: S89.91XA Unspecified injury of right lower leg, initial encounter (principal); X58.XXXA Exposure to other specified factors, initial encounter
CPT/HCPCS: 73562

== ENCOUNTER → 2023-04-18 16:25 | Outpatient (CLI) | payer OTHER, SELFPAY | PROVIDERS: PCP Family Medicine; Referring Provider Family Medicine; Visit Provider Family Medicine | DX: Z23 Encounter for immunization (principal) | CPT/HCPCS: 90471; 90686 ==

== ENCOUNTER 2023-05-14 10:18 | Day surgery (SDC) | payer OTHER, SELFPAY ==
--- NOTE | 2023-05-14 | PATH_ITS ---
[facility] Accession Number: [id number] No. of containers..01 Tissue . 01 Material submitted: . gastrointestinal site - GASTRIC BIOPSIES . 01 Diagnosis: Gastric Biopsies: Portions of gastric antral mucosa with mild chronic gastritis and focal, mild reactive gastropathy. Negative for Helicobacter organisms by immunohistochemistry. Negative for intestinal metaplasia. Negative for dysplasia or malignancy. MRV 05/27/2023 1307 Local . 01 Electronically signed: . Emerita Handley MD, Pathologist NPI- [id number] . 01 Gross description: . The specimen is received in formalin labeled with the patient's name, , and gastric biopsies consists of two chakraborty soft tissue fragments ranging from 0.3 to 0.4 cm in greatest dimension. Submitted entirely in cassette A1. ([id number]) /MRV 05/15/2023 1808 Local . 01 Microscopic: . A. An immunohistochemical stain was performed to evaluate for Helicobacter organisms and is negative. The control stain showed appropriate reactivity. . * This test was developed and its performance characteristics determined by [facility]. It has not been cleared or approved by the U.S. Food and Drug Administration. The FDA has determined that such clearance or approval is not necessary. This test is used for clinical purposes. It should not be regarded as investigational or for research. . 01 Pathologist provided ICD-10: K29.70 . 01 CPT . 540270, G55141 Specimen Comment: A courtesy copy of this report has been sent to [phone] Performed at: 01 [facility] [address] [place] [address] [address] [facility], [place], [place] [id number] MD Estuardo Dickson MD Phone: [phone]
[2023-05-14] MEDS: LACTATED RINGERS 1,000 ML 42 ML IV (10:27)
[2023-05-14 10:59] VITALS: BP 146/72; PULSE 65; RESP 16; TEMP 36.4; O2SAT 100; BMI 22.3
--- NOTE | 2023-05-14 11:30 | P.HP_ITS ---
History of Present Illness History of Present Illness Date Patient Seen: 05/14/23 Chief complaint: EGD & Colonoscopy w/poss bx's Narrative: 62-year-old woman here for diagnostic EGD and colonoscopy for abdominal pain. Please refer to the H and P from March 2023 for further detail. Epigastric pain is improving but not resolved with Carafate and omeprazole. PFSH Medical History Depression Anxiety Migraines Irritable bowel syndrome Mitral valve prolapse Surgical History Status post functional endoscopic sinus surgery History of breast augmentation Status post hysterectomy Family History Grandfather No problems noted. Mother No problems noted. Social History marital status: household members: spouse Smoking Status: Never smoker alcohol intake: never substance use type: does not use Meds Home Medications and Allergies Home Medications Medication Instructions Recorded Confirmed Type fexofenadine-pseudoephedrine ER 1 tab PO QDAYP PRN #90 tabs 11/01/16 05/14/23 Rx 180 mg-240 mg tablet,ext.release 24 hr (Sharri-D 24 Hour) hydromorphone 3 mg rectal 3 mg SC ONCE PRN pain #6 ea 04/17/17 04/10/23 Rx suppository methylphenidate HCl 20 mg tablet 20 mg PO BID 05/15/18 05/14/23 History trazodone 150 mg tablet 150 mg PO DAILY 09/19/18 05/14/23 History duloxetine 60 mg capsule,delayed 60 mg PO Q DAY #90 caps 06/19/19 05/14/23 Rx release (Cymbalta) omeprazole 20 mg capsule,delayed 20 mg PO BID #180 caps 07/28/20 05/14/23 Rx release buspirone 15 mg tablet 15 mg PO DAILY 11/03/20 05/14/23 History albuterol sulfate 90 mcg/actuation 2 puff inhalation Q6H PRN 11/17/21 05/14/23 Rx aerosol inhaler shortness of breath or wheezing #1 inh furosemide 40 mg tablet See Rx Instructions .Route 05/16/22 04/10/23 Rx .COMPLEX #90 tabs propranolol 60 mg capsule,24 See Rx Instructions .Route 08/06/22 05/14/23 Rx hr,extended release .COMPLEX #180 caps promethazine 25 mg rectal 25 mg SC Q6HP PRN nausea and 12/10/22 05/14/23 Rx suppository vomiting #24 supp calcitonin (salmon) 200 1 spray intranasal DAILY #11.1 mL 12/31/22 05/14/23 Rx unit/actuation nasal spray gabapentin 300 mg capsule 1,200 mg (4 x 300 mg) PO TID 03/12/23 04/10/23 Rx (Neurontin) #1,080 caps sodium,potassium,mag sulfates 17.5 See Rx Instructions PO .COMPLEX 03/28/23 05/14/23 Rx gram-3.13 gram-1.6 gram oral soln #354 mL (Suprep Bowel Prep Kit) tizanidine 4 mg tablet 4 mg PO TID PRN muscle spasticity 04/04/23 05/14/23 Rx #270 tabs levothyroxine 75 mcg tablet 75 mcg PO DAILY #90 tabs 04/29/23 05/14/23 Rx hrgxnnybef-unbtoupdgrrmq-fpyysduw 2 tab PO Q6H PRN headache #120 tabs 05/02/23 05/14/23 Rx 50 mg-325 mg-40 mg tablet clobetasol 0.05 % topical ointment 1 g topical BID #60 grams 05/02/23 05/14/23 Rx estradiol 0.01% (0.1 mg/gram) 1 g vaginal 3XW #42.5 grams 05/02/23 05/14/23 Rx vaginal cream estradiol 1 mg tablet See Rx Instructions .Route 05/02/23 05/14/23 Rx .COMPLEX #90 tabs hydrocodone 5 mg-acetaminophen 325 See Rx Instructions PO Q6H PRN 05/02/23 Rx mg tablet pain #135 tabs Allergies Allergy/AdvReac Type Severity Reaction Status Date / Time aripiprazole [From ABILIFY] Allergy Mild CONFUSION Verified 05/14/23 10:46 lamotrigine [From LAMICTAL] Allergy Mild CONFUSION,MEMORY Verified 05/14/23 10:46 LOSS rizatriptan [RIZATRIPTAN] Allergy Mild CHEST PAIN Verified 05/14/23 10:46 AND NECK TIGHTNESS sumatriptan [SUMATRIPTAN] Allergy Mild CHEST Verified 05/14/23 10:46 PAIN, NECK TIGHTNESS topiramate [TOPIRAMATE] Allergy Mild MEMORY LOSS Verified 05/14/23 10:46 lithium [LITHIUM] Allergy Unknown Confusion, Verified 05/14/23 10:46 Lethargy-Hospitalized Exam Vital Signs (past 8 hours): - 05/14/23 10:59 Temperature 97.6 F Pulse Rate 65 Respiratory Rate 16 Blood Pressure 146/72 H Pulse Oximetry 100 Oxygen Delivery Method Room Air Oxygen Delivery Method Room Air Narrative Exam Narrative: General adult woman alert oriented no acute distress Chest nonlabored respiration Extremities warm well perfused Assessment & Plan Assessment and plan (1) Epigastric pain: Status: Acute Assessment & Plan narrative: 62-year-old woman with epigastric pain here for diagnostic esophagoduodenoscopy and colonoscopy. Technical details were discussed. Risks, benefits, alternatives explained. Risks including but not limited to myocardial infarction, aspiration, bleeding, pain, missed lesion, incomplete examination, need for further radiographic studies, intestinal injury, and need for major abdominal surgery were discussed. All questions were answered to their satis faction, and they are in agreement with this plan.
--- NOTE | 2023-05-14 11:37 | P.OP.EGD&C_ITS ---
Operative Date/Time/Diagnoses Date of procedure: 05/14/23 Time of procedure: 11:37 Pre-op diagnosis: Epigastric pain Procedure & Clinicians Study performed: Diagnostic esophagoduodenoscopy and colonoscopy Same procedure as scheduled: Yes Indications: 62-year-old woman with chronic epigastric pain here for diagnostic EGD and colonoscopy Procedure Notes Procedure in detail: The history and physical was performed/updated and the patient is ASA class is 2. The procedure was discussed in detail with the patient. Potential risks complications including infection, bleeding, missed diagnosis, perforation, need for surgery, and were explained. Their questions were answered and informed consent was obtained. Patient placed in left lateral decubitus position. Time out was performed. Procedural sedation was administered by Anesthesia. A bite block was placed. the scope was inserted into the mouth and advanced through the esophagus and into the stomach. the pylorus was intubated and the duodenum was examined to the 2nd portion. The scope was retroflexed within the stomach. The stomach was then decompressed and scope pulled back to the GE junction. The scope was then removed Examination began with a thorough inspection of the perianal area there was no evidence of fissures, fistulae, external hemorrhoids or cutaneous malignancy. The colonoscopy scope was then placed into the anal canal and was advanced to the cecum, which was identified by the ileocecal valve, the appendiceal orifice and the confluence of the taenia. The scope was then slowly withdrawn examining colon thoroughly in all directions, irrigating it of any residual stool. FINDINGS * Healing 1 cm gastric ulcer within the pyloric canal. No bleeding visible vessel. Fragments of clot within the stomach. Biopsies performed with forceps * GE junction 38 cm from incisors normal * Unremarkable colonoscopy. No masses, polyps or inflammation * The patient tolerated the procedure well. They will be discharged once criteria are met. The prep was of good/excellent quality. The withdrawl time was * minutes. Findings: gastric ulcer Specimen(s): other (Gastric) Impression: Increase omeprazole to 40 mg twice daily Post-procedure Plan for aftercare: We will notify with pathology Disposition: same day surgery
[2023-05-14 12:08] VITALS: BP 132/79; PULSE 72; RESP 18; TEMP 36.2; O2SAT 96
[2023-05-14 12:13] VITALS: BP 132/89; PULSE 66; RESP 13; O2SAT 99
[2023-05-14 12:18] VITALS: BP 134/80; PULSE 60; RESP 14; TEMP 35.9; O2SAT 97
[2023-05-14 12:24] VITALS: BP 136/72; PULSE 60; RESP 17; TEMP 35.9; O2SAT 99
[2023-05-14 12:40] VITALS: BP 131/68; PULSE 60; RESP 18; TEMP 36.1; O2SAT 96
== END 2023-05-14 12:40 | disposition home or self-care (01) ==
PROVIDERS: PCP Family Medicine; Referring Provider Surgery; Visit Provider Surgery
PROC: 0DJ08ZZ Inspection of Upper Intestinal Tract, Via Natural or Artificial Opening Endoscopic (ICD-10-PCS; CPT 43235; principal; 2023-05-14 11:15)
PROC: 0DJD8ZZ Inspection of Lower Intestinal Tract, Via Natural or Artificial Opening Endoscopic (ICD-10-PCS; CPT 45378; 2023-05-14 11:15)
DX: R10.13 Epigastric pain (principal); K29.50 Unspecified chronic gastritis without bleeding; K31.9 Disease of stomach and duodenum, unspecified
CPT/HCPCS: 45378; 43239; 36415

== ENCOUNTER → 2023-05-21 07:54 | Outpatient (CLI) | payer OTHER, SELFPAY ==
[2023-05-21 09:13] LABS: Add Manual Diff / Slide Review NO; Basophils Absolute Auto 100 /uL (0-100); Eosinophils Absolute Auto 200 /uL (0-450); Eosinophils Percent Auto 2.8 % (2-4); Hematocrit 37.4 % (36-46); Hemoglobin 12.6 g/dL (12.0-16.0); Lymphocytes Absolute Auto 2100 /uL (1100-4500); Lymphocytes Percent Auto 33.3 % (25-40); Mean Corpuscular HGB Conc 33.7 % (30-36); Mean Corpuscular Hemoglobin 29.3 PG (26-34); Mean Corpuscular Volume 87.1 fL (80-100); Monocytes Absolute Auto 500 /uL (0-900); Neutrophils Absolute Auto 3500 /uL (1500-7000); Neutrophils Percent Auto 54.9 % (50-75); Platelet Count 277 X10^3/uL (150-400); Red Blood Cell Count 4.29 X10^6/uL (4.0-5.2); Red Cell Distribution Width 13.9 % (11.6-14.8); White Blood Cell Count 6.4 X10^3/uL (4.5-11.0)
[2023-05-21 10:12] LABS: Alanine Aminotransferase 15 IU/L (<35); Albumin 4.3 g/dL (3.5-5.0); Albumin Globulin Ratio 1.3 (1.0-2.8); Alkaline Phosphatase 121 U/L (38-126); Aspartate Aminotransferase 37 IU/L (14-36); Bilirubin Total 0.5 mg/dL (0.2-1.3); Blood Urea Nitrogen 16 mg/dL (7-17); Calcium 10.7 mg/dL (8.4-10.2); Carbon Dioxide 27 mmol/L (22-32); Chloride 101 mmol/L (98-107); Cholesterol 281 mg/dL (140-199); Estimated Glomerular Filt Rate > 60 mL/min (>60); Globulin 3.3 g/dL (1.7-4.1); Glucose 107 mg/dL (80-110); HDL Cholesterol 59 mg/dL (40-60); HEMOLYSIS < 15 (0-50); Potassium 4.5 mmol/L (3.4-5.1); Sodium 136 mmol/L (137-145); Total Protein 7.6 g/dL (6.3-8.2); Triglycerides 470 mg/dL (35-150)
[2023-05-21 10:36] LABS: TSH w/ Reflex to FT4 1.61 uIU/mL (0.47-4.68)
== END ==
PROVIDERS: PCP Family Medicine; Referring Provider Family Medicine; Visit Provider Family Medicine
DX: Z13.220 Encounter for screening for lipoid disorders (principal); Z13.1 Encounter for screening for diabetes mellitus; F33.2 Major depressive disorder, recurrent severe without psychotic features; E03.9 Hypothyroidism, unspecified; M79.10 Myalgia, unspecified site
CPT/HCPCS: 36415; 80053; 80061; 83036; 84443; 85025

== ENCOUNTER → 2023-08-08 13:38 | Outpatient (CLI) | payer OTHER, SELFPAY ==
[2023-08-08 15:44] LABS: Influenza A - CEPHEID Flu A NEGATIVE (NEGATIVE); Influenza B - CEPHEID Flu B NEGATIVE (NEGATIVE); Respiratory Syncytial Virus Negative (Negative)
[2023-08-08 16:02] LABS: COVID-19 CEPHEID 4-PLEX PCR Negative (Negative)
== END ==
PROVIDERS: PCP Family Medicine; Visit Provider Family Medicine
DX: R05.1 Acute cough (principal); R50.9 Fever, unspecified
CPT/HCPCS: 0241U

== ENCOUNTER → 2023-08-19 11:03 | Outpatient (CLI) | payer OTHER, SELFPAY | PROVIDERS: PCP Family Medicine; Visit Provider Family Medicine | DX: N39.0 Urinary tract infection, site not specified (principal) | CPT/HCPCS: 87077; 87086; 87186 ==

== ENCOUNTER → 2023-08-26 15:30 | Outpatient (CLI) | payer OTHER, SELFPAY | PROVIDERS: PCP Family Medicine; Visit Provider Family Medicine | DX: N39.0 Urinary tract infection, site not specified (principal); R10.9 Unspecified abdominal pain; R31.9 Hematuria, unspecified | CPT/HCPCS: 87086 ==

== ENCOUNTER → 2023-08-27 09:16 | Outpatient (CLI) | payer OTHER, SELFPAY ==
--- NOTE | 2023-08-27 09:30 | DI.CT.S_ITS ---
PROCEDURE: CT KIDNEY URETER BLADDER (KUB) INDICATIONS: kidney pain on left with hematuria and recurrence uti w fever TECHNIQUE: Axial sections were acquired from the lung bases to the pubic symphysis. Coronal and sagittal reformats were performed. For radiation dose reduction, the following was used: automated exposure control, adjustment of mA and/or kV according to patient size. COMPARISON: None. FINDINGS: Image quality: Diagnostic. Evaluation of the visceral organs is limited due to the lack of intravenous contrast. Lower Chest: No significant findings. Bilateral breast implants. URINARY: Right Kidney: Mild to moderate right-sided hydroureteronephrosis with fat stranding. Mild anterior rotation of the kidney. Right Ureter: No hydronephrosis or nephrolithiasis. Left Kidney: No stones or hydronephrosis. Mild anterior rotation of the kidney. Left Ureter: No hydroureter. Bladder: Normal wall thickness. No stones. ABDOMEN: Liver: No contour-deforming solid mass. Gallbladder: No radiopaque gallstones or wall thickening. Biliary ducts: No biliary dilation. Pancreas: No ductal dilation. Spleen: Size is within normal limits. Adrenal Glands: No adrenal nodules. Stomach and Bowel: No hiatal hernia. Stomach appears grossly normal. Small and large bowel is normal in caliber, without obstruction. Appendix is not well seen; however, no acute inflammatory signs in the right lower quadrant. Peritoneum: No abnormal intraperitoneal fluid. No free air. Ventral Wall: No hernia. Abdominal Nodes: No enlarged retroperitoneal or mesenteric lymph nodes. Vessels: Aorta and inferior vena cava are normal in size. PELVIS: Pelvic Organs: Unremarkable. Pelvic Nodes: Unremarkable. Miscellaneous: No inguinal hernias are seen. Bones: No acute fractures. No aggressive appearing lytic or blastic osseous lesions. Mild multilevel degenerative changes of the spine. IMPRESSION: Evaluation of the visceral organs is limited due to the lack of intravenous contrast. 1. Mild to moderate right-sided hydroureteronephrosis with fat stranding suggestive of infection. No obstructive nephrolith. Findings may represent sequela of a recently passed stone. Correlate with urine analysis and culture. 2. No hydronephrosis bilaterally. Bilateral kidneys are mildly anteriorly rotated, benign variant. Dictated by: Hector Adamson M.D. on 08/27/2023 at 10:31 Approved by: Hector Adamson M.D. on 08/27/2023 at 11:42
== END ==
PROVIDERS: PCP Family Medicine; Referring Provider Family Medicine; Visit Provider Family Medicine
DX: N13.30 Unspecified hydronephrosis (principal); N39.0 Urinary tract infection, site not specified; R31.9 Hematuria, unspecified; R10.9 Unspecified abdominal pain
CPT/HCPCS: 74176

== ENCOUNTER → 2023-10-15 11:20 | Outpatient (CLI) | payer OTHER, SELFPAY ==
[2023-10-15 11:58] LABS: Hematocrit 35.4 % (36-46); Hemoglobin 11.6 g/dL (12.0-16.0)
[2023-10-15 12:40] LABS: HEMOLYSIS < 15 (0-50); Iron 91 ug/dL (37-170)
[2023-10-15 12:51] LABS: Percent Iron Saturation 25 % (15-50); Total Iron Binding Capacity 360 ug/dL (265-497); Transferrin 298 mg/dL (206-381)
[2023-10-15 13:03] LABS: Ferritin 10 ng/mL (11-264)
== END ==
PROVIDERS: PCP Family Medicine; Referring Provider Family Medicine; Visit Provider Family Medicine
DX: D64.9 Anemia, unspecified (principal)
CPT/HCPCS: 36415; 82728; 83540; 83550; 85014; 85018

== ENCOUNTER → 2024-01-17 07:35 | Outpatient (CLI) | payer OTHER, SELFPAY ==
--- NOTE | 2024-01-17 07:37 | DI.MRI.S_ITS ---
BREAST MRI OF BOTH BREASTS: 01/17/2024 CLINICAL: Possible left implant rupture. PROCEDURE: MR BREAST BI WO CON INDICATIONS: breast implant possible rupture TECHNIQUE: The patient was placed prone in a dedicated breast imaging coil. Axial bilateral STIR, axial and sagittal STIR with water saturation (silicone selective), sagittal T2 fast spin echo with fat saturation, and coronal T2 fast spin echo without fat saturation sequences were acquired. COMPARISON: [facility], CT, CT KIDNEY URETER BLADDER (KUB), 08/27/2023, 9:23. [facility], MG, MM SCREENING MAMMO IMPLANT BI, 01/21/2023, 16:08. [facility], , MM SCREENING MAMMO IMPLANT BI, 11/20/2021, 7:48. FINDINGS: Image quality: Excellent. Right breast: Multiple tiny T2 hyperintense cysts. Susceptibility artifact from prior biopsy clip. Retropectoral silicone implant. No extracapsular rupture. No intracapsular rupture demonstrated. Left breast: Multiple tiny T2 hyperintense cysts. Susceptibility artifact from prior clips. Retropectoral silicone implant. No extracapsular rupture. Linguine sign is present consistent with intracapsular rupture. No definite enlarged lymph nodes. Susceptibility artifact at the left axillary tail. IMPRESSION: BENIGN 1. Right breast: No implant rupture. 2. Left breast: Intracapsular implant rupture. No extracapsular rupture. BIRADS 2 A 1 year screening mammogram is recommended. Future imaging is recommended as follows: 01/22/2024 screening mammogram. Dictated by: Nico Zambrano M.D. on 01/20/2024 at 9:13 This exam was interpreted at Station ID: [id number]. Electronically Signed By: Nico Zambrano M.D. slc/:01/20/2024 09:27:00 Entry: - 01/20/2024 10:17:07 letter sent: Normal Exam ACR BI-RADS Category 2: Benign Finding(s) 3342F
[2024-01-17 08:06] LABS: Add Manual Diff / Slide Review NO; Basophils Absolute Auto 0 /uL (0-100); Basophils Percent Auto 0.7 % (0-2); Eosinophils Absolute Auto 100 /uL (0-450); Eosinophils Percent Auto 2.5 % (2-4); Hematocrit 31.6 % (36-46); Hemoglobin 10.3 g/dL (12.0-16.0); Lymphocytes Absolute Auto 1000 /uL (1100-4500); Lymphocytes Percent Auto 24.7 % (25-40); Mean Corpuscular HGB Conc 32.6 % (30-36); Mean Corpuscular Hemoglobin 26.9 PG (26-34); Mean Corpuscular Volume 82.6 fL (80-100); Monocytes Absolute Auto 300 /uL (0-900); Monocytes Percent Auto 8.1 % (3-14); Neutrophils Absolute Auto 2700 /uL (1500-7000); Platelet Count 289 X10^3/uL (150-400); Red Blood Cell Count 3.83 X10^6/uL (4.0-5.2); Red Cell Distribution Width 14.6 % (11.6-14.8); White Blood Cell Count 4.2 X10^3/uL (4.5-11.0)
[2024-01-17 08:17] LABS: INR 0.9 (0.9-1.3); Prothrombin Time 10.8 SECONDS (9.4-12.5)
[2024-01-17 08:29] LABS: Alanine Aminotransferase 11 IU/L (<35); Albumin Globulin Ratio 1.5 (1.0-2.8); Alkaline Phosphatase 77 U/L (38-126); Aspartate Aminotransferase 25 IU/L (14-36); BUN Creatinine Ratio 18.8 (6-22); Bilirubin Total 0.6 mg/dL (0.2-1.3); Blood Urea Nitrogen 16 mg/dL (7-17); Calcium 9.5 mg/dL (8.4-10.2); Carbon Dioxide 24 mmol/L (22-32); Chloride 107 mmol/L (98-107); Cholesterol 210 mg/dL (140-199); Estimated Glomerular Filt Rate > 60 mL/min (>60); Globulin 2.7 g/dL (1.7-4.1); Glucose 107 mg/dL (80-110); HDL Cholesterol 80 mg/dL (40-60); HEMOLYSIS < 15 (0-50); LDL Cholesterol Calculated 99 mg/dL (<100); Potassium 4.2 mmol/L (3.4-5.1); Sodium 137 mmol/L (137-145); Total Protein 6.7 g/dL (6.3-8.2); Triglycerides 157 mg/dL (35-150)
[2024-01-17 08:32] LABS: NT-proBNP (BNP-Adult 18+) 299 pg/mL (<125)
[2024-01-17 08:54] LABS: Erythrocyte Sedimentation Rate 18 MM/HR (0-20)
[2024-01-17 08:55] LABS: TSH w/ Reflex to FT4 1.57 uIU/mL (0.47-4.68)
== END ==
PROVIDERS: PCP Family Medicine; Referring Provider Family Medicine; Visit Provider Family Medicine
DX: T85.43XA Leakage of breast prosthesis and implant, initial encounter (principal); N63.20 Unspecified lump in the left breast, unspecified quadrant; N39.0 Urinary tract infection, site not specified; R73.03 Prediabetes; R06.02 Shortness of breath; D64.9 Anemia, unspecified; D75.839 Thrombocytosis, unspecified; M79.10 Myalgia, unspecified site
CPT/HCPCS: 36415; 80053; 80061; 83880; 84443; 85025; 85610; 85651; 77047

== ENCOUNTER → 2024-02-12 09:44 | Outpatient (CLI) | payer OTHER, SELFPAY ==
--- NOTE | 2024-02-12 09:45 | DI.RAD.S_ITS ---
PROCEDURE: XR CHEST 2V INDICATIONS: short of breath TECHNIQUE: 2 views of the chest were acquired. COMPARISON: None. FINDINGS: Surgical changes and devices: Surgical clips project over the left axilla and breast.. Lungs and pleura: Lungs are clear. No pleural effusions or pneumothorax. Mediastinum: Mediastinal contours are normal. Heart size is normal. Bones and chest wall: No suspicious bony abnormalities. Soft tissues appear unremarkable. IMPRESSION: No acute cardiopulmonary abnormalities or focal consolidation. Dictated by: Tavo Morgan M.D. on 02/12/2024 at 15:40 Approved by: Tavo Morgan M.D. on 02/12/2024 at 15:41
--- NOTE | 2024-02-12 09:45 | DI.ECHO.S_ITS ---
[facility] : : [address] : : [place] : : [id number] : : Phone: [phone] Echocardiogram Report + + :Name: SHAREE STACK Study Date: 02/12/2024 Height: 70.5 in: :[facility] ReadingLocation: Weight: 148 lb : : Gender: Female BSA: 1.8 m2 : :: 1960 Age: 63 yrs BP: 143/84 mmHg: :Reason For Study: SHORTNESS OF BREATH : :Ordering Physician: ARPIT, : :IRIS Performed By: Samantha Blackwell : :Referring: IRIS MUNSON : + + Interpretation Summary The ejection fraction is estimated to be 55-60%. Diastolic parameters suggest probable normal left ventricular diastolic function and normal filling pressures. The right ventricle is normal in size and function. There is mild tricuspid regurgitation. The right ventricular systolic pressure is estimated to be at least 21 mmHg based on an estimated right atrial pressure of 3 mm Hg. Procedure: A two-dimensional transthoracic echocardiogram with color flow and Doppler was performed. The study quality was technically adequate. There is no prior echocardiogram noted for this patient. The patient was in sinus bradycardia with heart rates between 52-60 bpm during the exam. Left Ventricle: The left ventricle is normal in size and wall thickness. The ejection fraction is estimated to be 55-60%. Diastolic parameters suggest probable normal left ventricular diastolic function and normal filling pressures. Right Ventricle: The right ventricle is normal in size and function. Atria: The left atrial size is normal. Right atrial size is normal. There is no Doppler evidence for an interatrial shunt. Mitral Valve: The mitral valve is normal. There is mild mitral regurgitation. Aortic Valve: The aortic valve is trileaflet. The aortic valve opens well. There is no aortic valve stenosis. No aortic regurgitation is present. Tricuspid Valve: The tricuspid valve is normal. There is mild tricuspid regurgitation. The right ventricular systolic pressure is estimated to be at least 21 mmHg based on an estimated right atrial pressure of 3 mm Hg. Pulmonic Valve: The pulmonic valve is not well visualized. There is no pulmonic valvular regurgitation. Great Vessels: The aortic root is borderline dilated. The dimensions of the ascending aorta are normal. The ascending aorta could not be visualized. The IVC is of normal diameter and collapses greater than 50% with a sniff. This suggests a low right atrial pressure of 3 mm Hg. Pericardium/ Pleura There is no pericardial effusion. There is no pleural effusion. MMode/2D Measurements & Calculations LVIDd: 5.2 cm LVOT diam: 2.1 cm LVIDs: 3.7 cm Ao root diam: 3.9 cm FS: 29.1 % asc Aorta Diam: 3.8 cm EPSS: 0.90 cm Ao Arch Diam (Prox Trans): 2.7 cm IVSd: 0.93 cm LVPWd: 0.61 cm LV anna. diameter/BSA (cm/m^2): 2.8 LV sys. diameter/BSA (cm/m^2): 2.0 LA A2 area: 17.5 cm2 RA long axis: 4.6 cm LA A4 area: 15.0 cm2 RA area: 15.2 cm2 LA length (vol): 4.3 cm RA vol: 43.1 ml LA vol: 51.6 ml RA : 23.3 ml/m2 LA vol index: 27.9 ml/m2 IVC diam: 1.8 cm RVD1 (basal): 3.5 cm TAPSE: 1.8 cm Doppler Measurements & Calculations Ao V2 max: 98.3 cm/sec LVOT Max Ck: 73.5 cm/sec Ao V2 mean: 71.2 cm/sec LV V1 max P.2 mmHg Ao max P.9 mmHg LV V1 VTI: 16.3 cm Ao mean P.2 mmHg SLIME(I,D): 2.4 cm2 Ao V2 VTI: 23.9 cm SLIME(V,D): 2.7 cm2 sev ratio: 0.68 SLIME indexed to BSA (cm^2/m^2): 1.3 MV E max ck: 54.2 cm/sec TR max ck: 212.6 cm/sec MV A max ck: 52.5 cm/sec TR max P.1 mmHg MV E/A: 1.0 PA V2 max: 57.3 cm/sec Med Peak E' Ck: 5.5 cm/sec PA V2 mean: 40.3 cm/sec E/E' med: 9.8 PA mean P.72 mmHg Lat Peak E' Ck: 8.2 cm/sec PA pr(Accel): 29.3 mmHg E/E' lat: 6.6 E/e' average: 8.2 MV dec time: 0.21 sec [facility]): 57.9 ml Reading Physician:03:24 PM
== END ==
PROVIDERS: PCP Family Medicine; Referring Provider Family Medicine; Visit Provider Family Medicine
DX: R06.02 Shortness of breath (principal); D64.9 Anemia, unspecified; D75.839 Thrombocytosis, unspecified; N39.0 Urinary tract infection, site not specified; R73.03 Prediabetes; I07.1 Rheumatic tricuspid insufficiency
CPT/HCPCS: 71046; 93306

== ENCOUNTER → 2024-02-21 16:30 | Outpatient (CLI) | payer OTHER, SELFPAY ==
--- NOTE | 2024-02-21 16:32 | DI.RAD.S_ITS ---
PROCEDURE: XR RIBS RT MIN 3V W CXR 1V INDICATIONS: eval rib pain/fall TECHNIQUE: 2 views of the ribs were acquired, along with a single view chest. COMPARISON: None. FINDINGS: Surgical changes and devices: Left breast surgical clips. Bones and chest wall: Minimally displaced right 8th and 9th rib fractures.. No suspicious bony lesions. Overlying soft tissues appear unremarkable. Lungs and pleura: No pleural effusions or pneumothorax. Lungs appear clear. Mediastinum: Mediastinal contours appear normal. Heart size is normal. IMPRESSION: Right 8th and 9th rib fractures. Dictated by: Cyndee Molina MD, PhD on 02/24/2024 at 12:49 Approved by: Cyndee Molina MD, PhD on 02/24/2024 at 12:50
== END ==
LOC: RAD 16:32
PROVIDERS: PCP Family Medicine; Referring Provider Family Medicine; Visit Provider Family Medicine
DX: S22.41XA Multiple fractures of ribs, right side, initial encounter for closed fracture (principal); R07.81 Pleurodynia
CPT/HCPCS: 71101

== ENCOUNTER → 2024-02-27 15:19 | Outpatient (CLI) | payer OTHER, SELFPAY ==
--- NOTE | 2024-02-27 15:21 | DI.RAD.S_ITS ---
PROCEDURE: XR DEXA AXIAL SKELETON INDICATIONS: rib fracture from ground level fall COMPARISON: [facility], CR, XR DEXA AXIAL SKELETON, 10/15/2018, 9:50. FINDINGS: Lumbar Spine: Two through four Bone mineral density 1.366 g/cm2, T score 2.6, normal, change from previous 2.1 %. Left Hip: Bone mineral density 0.750 g/cm2, T score -1.6, osteopenia, change from previous 2.6%. Left Femoral Neck: Bone mineral density 0.734 g/cm2, T score -1.0, normal, change from previous 12.1%. Right Hip: Bone mineral density 0.745 g/cm2, T score -1.6, osteopenia, change from previous-2.0%. Right Femoral Neck: Bone mineral density 0.729 g/cm2, T score -1.1, osteopenia, change from previous 7.4%. Fracture Risk Calculation (when applicable): 10-year fracture risk of a major osteoporotic fracture 8.8 % and of a hip fracture 0.7%. (T score greater or equal to -1.0 to: NORMAL) (T score from -1.1 to -2.4: OSTEOPENIA) (T score less than or equal to -2.5: OSTEOPOROSIS) IMPRESSION: The patient is osteopenic. Ten year fracture risk as above. Dissimilar scan types compared to the prior exam prevent statistical comparison between current and prior exams. Subjectively, there is been variable changes in bone mineral density depending on structure scanned. There may be degenerative sclerosis affecting the calculations. Follow-up guidelines as follows: Osteoporosis: Consider a repeat DEXA and Vertebral Fracture Assessment (VFA) exam in 2 years or sooner if medically necessary, to reassess this patient's status. Osteopenia: Consider a repeat DEXA in 2-3 years to reassess this patient's status, or if there is a new clinical indication. Normal: Consider a repeat DEXA in 5 years or sooner, or if there is a new clinical indication. All treatment decisions require clinical judgment and consideration of individual patient factors, including patient preferences, comorbidities, previous drug use, risk factors not captured in the FRAX model (e.g., frailty, falls, vitamin D deficiency, increased bone turnover, interval significant decline in bone density ) and possible under- or over-estimation of fracture risk by FRAX. In addition, the NOF Guide recommends that FDA-approved medical therapies be considered in postmenopausal women and men age >= 50 years with a: * Hip or vertebral (clinical or morphometric) fracture * T-score of <=-2.5 at the spine or hip * Ten-year fracture probability by FRAX of >= 3% for hip fracture or >=20% for major osteoporotic fracture. People with diagnosed cases of osteoporosis or at high risk for fracture should have regular bone mineral density tests. For patients eligible for Medicare, routine testing is allowed once every 2 years. The testing frequency can be increased to one year for patients who have rapidly progressing disease, those who are receiving or discontinuing medical therapy to restore bone mass, or have additional risk factors. Dictated by: Elena Downing M.D. on 02/27/2024 at 18:04 Approved by: Elena Downing M.D. on 02/27/2024 at 18:07
== END ==
LOC: RAD 15:20
PROVIDERS: PCP Family Medicine; Referring Provider Family Medicine; Visit Provider Family Medicine
DX: M85.89 Other specified disorders of bone density and structure, multiple sites (principal); Z78.0 Asymptomatic menopausal state; S22.49XA Multiple fractures of ribs, unspecified side, initial encounter for closed fracture
CPT/HCPCS: 77080

== ENCOUNTER → 2024-03-30 17:45 | Outpatient (CLI) | payer OTHER, SELFPAY | PROVIDERS: PCP Family Medicine; Referring Provider Internal Medicine; Visit Provider Internal Medicine | DX: Z23 Encounter for immunization (principal) | CPT/HCPCS: 90471; 90656 ==

== ENCOUNTER → 2024-09-23 14:47 | Outpatient (CLI) | payer OTHER, SELFPAY ==
[2024-09-23 16:15] LABS: BUN Creatinine Ratio 22.8 (6-22); Blood Urea Nitrogen 18 mg/dL (7-17); Calcium 9.8 mg/dL (8.4-10.2); Carbon Dioxide 24 mmol/L (22-32); Chloride 102 mmol/L (98-107); Estimated Glomerular Filt Rate > 60 mL/min (>60); Glucose 89 mg/dL (80-110); HEMOLYSIS 19 (0-50); Sodium 137 mmol/L (137-145)
== END ==
PROVIDERS: PCP Family Medicine; Referring Provider Family Medicine; Visit Provider Family Medicine
DX: Z01.818 Encounter for other preprocedural examination (principal); I10 Essential (primary) hypertension
CPT/HCPCS: 36415; 80048

== ENCOUNTER → 2025-03-01 12:15 | Outpatient (CLI) | payer OTHER, SELFPAY ==
[2025-03-01 13:00] LABS: Add Manual Diff / Slide Review NO; Hematocrit 33.0 % (36-46); Hemoglobin 11.2 g/dL (12.0-16.0); Lymphocytes Absolute Auto 1400 /uL (1100-4500); Mean Corpuscular HGB Conc 33.9 % (30-36); Mean Corpuscular Hemoglobin 30.6 PG (26-34); Mean Corpuscular Volume 90.3 fL (80-100); Platelet Count 314 X10^3/uL (150-400)
[2025-03-01 13:09] LABS: HEMOLYSIS < 15 (0-50)
[2025-03-01 13:10] LABS: Hemoglobin A1C% w Est Avg Glu 5.6 % (4.0-6.0)
[2025-03-01 13:13] LABS: Alanine Aminotransferase 13 IU/L (<35); Albumin 4.6 g/dL (3.5-5.0); Albumin Globulin Ratio 1.9 (1.0-2.8); Alkaline Phosphatase 76 U/L (38-126); Blood Urea Nitrogen 24 mg/dL (7-17); Calcium 9.3 mg/dL (8.4-10.2); Carbon Dioxide 23 mmol/L (22-32); Chloride 101 mmol/L (98-107); Cholesterol 206 mg/dL (140-199); Estimated Glomerular Filt Rate > 60 mL/min (>60); Globulin 2.4 g/dL (1.7-4.1); Glucose 92 mg/dL (70-99); HDL Cholesterol 83 mg/dL (40-60); HEMOLYSIS < 15 (0-50); Potassium 4.8 mmol/L (3.4-5.1); Sodium 133 mmol/L (137-145); Total Protein 7.0 g/dL (6.3-8.2); Triglycerides 220 mg/dL (35-150)
[2025-03-01 13:25] LABS: Total Iron Binding Capacity 280 ug/dL (265-497); Transferrin 256 mg/dL (206-381)
[2025-03-01 13:45] LABS: TSH w/ Reflex to FT4 0.75 uIU/mL (0.47-4.68)
[2025-03-01 13:54] LABS: Ferritin 357 ng/mL (11-264)
[2025-03-01 14:05] LABS: Vitamin B12 899 pg/mL (239-931)
[2025-03-01 14:54] LABS: Microalbumi Creatinin Ratio Ur 12.0 ug/mg CR (<30)
[2025-03-01 15:06] LABS: Vitamin D 25 Hydroxy (D3) 97.2 ng/mL (30.0-100.0)
[2025-03-03 14:36] LABS: Iron 134 ug/dL (37-170); Percent Iron Saturation 48 % (15-50)
== END ==
PROVIDERS: PCP Family Medicine; Referring Provider Internal Medicine; Visit Provider Internal Medicine
DX: D50.9 Iron deficiency anemia, unspecified (principal); D64.9 Anemia, unspecified; R23.3 Spontaneous ecchymoses; E78.5 Hyperlipidemia, unspecified; I10 Essential (primary) hypertension; M79.10 Myalgia, unspecified site; R73.03 Prediabetes; D75.839 Thrombocytosis, unspecified; E03.9 Hypothyroidism, unspecified
CPT/HCPCS: 36415; 80053; 80061; 82043; 82306; 82570; 82607; 82728; 83036; 83540; 83550; 84443; 85025; 85651

== ENCOUNTER → 2025-03-04 | Outpatient (CLI) | payer OTHER, SELFPAY ==
--- NOTE | 2025-03-04 13:10 | DI.RAD.S_ITS ---
PROCEDURE: XR SHOULDER RT MIN 2V INDICATIONS: Bilateral shoulder pain L > R TECHNIQUE: Three views of the right shoulder were acquired. COMPARISON: [facility], CR, XR SHOULDER RT MIN 2V, 07/06/2022, 10:34. FINDINGS: Bones: Small base of sclerosis in the anatomic neck region is unchanged from 2022 exam 2022 Acromioclavicular and glenohumeral joints: Normal in width and alignment without arthritic change Soft tissues: No soft tissue swelling, calcification or mass. IMPRESSION: No significant abnormality. Stable Dictated by: Walker Nair M.D. on 03/05/2025 at 6:50 Approved by: Walker Nair M.D. on 03/05/2025 at 6:51
--- NOTE | 2025-03-04 13:10 | DI.RAD.S_ITS ---
PROCEDURE: XR SHOULDER LT MIN 2V INDICATIONS: Bilateral shoulder pain L > R TECHNIQUE: Three views of the left shoulder were acquired. COMPARISON: [facility], CR, XR SHOULDER RT MIN 2V, 07/06/2022, 10:34. FINDINGS: Bones: There are no osseous abnormalities. Acromioclavicular and glenohumeral joints: Normal in width and alignment without arthritic change Soft tissues: No soft tissue swelling, calcification or mass. IMPRESSION: Normal shoulder Dictated by: Walker Nair M.D. on 03/05/2025 at 6:49 Approved by: Walker Nair M.D. on 03/05/2025 at 6:50
== END ==
PROVIDERS: PCP Family Medicine; Referring Provider Physician Assistant; Visit Provider Physician Assistant
DX: M12.811 Other specific arthropathies, not elsewhere classified, right shoulder (principal); M25.511 Pain in right shoulder; M25.512 Pain in left shoulder; M67.912 Unspecified disorder of synovium and tendon, left shoulder; G89.29 Other chronic pain
CPT/HCPCS: 73030

== ENCOUNTER → 2025-03-06 09:31 | Outpatient (CLI) | payer OTHER, SELFPAY ==
--- NOTE | 2025-03-06 09:48 | DI.MG.S_ITS ---
MM screening mammo implant BI: 03/06/2025. BI-RADS: 2 CLINICAL: 64-year old female for bilateral screening mammogram. Tyrer-Cuzick lifetime risk of 3.5%. No personal or first-degree family history of breast cancer. The patient has bilateral implants. The patient had prior bilateral breast biopsies. PRIOR EXAMS 01/17/2024, 01/21/2023, 11/20/2021, 11/16/2020. MAMMOGRAPHY TECHNIQUE: 2D and 3D (tomosynthesis) digital mammographic views obtained, with additional images as needed for full coverage. Current study was also evaluated with a Computer Aided Detection (CAD) system. DENSITY C. The breasts are heterogeneously dense, which may obscure small masses. IMPLANTS Right: Breast implant present on the right. Left: Breast implant present on the left. MAMMOGRAPHY FINDINGS Right: Biopsy marker present on the right. There are no suspicious masses, calcifications, or other findings in the breast. Left: Benign-appearing post-surgical changes noted on the left. There are no suspicious masses, calcifications, or other findings in the breast. IMPRESSION: * No evidence of malignancy with benign findings. RECOMMENDATIONS Bilateral * Annual screening mammography. OVERALL ASSESSMENT CATEGORY BI-RADS-2: Benign. The [employer] recommends annual screening mammography beginning at age 40 for women with average risk of breast cancer. ELECTRONICALLY SIGNED: She Mosher M.D. on 03/08/2025 at 01:06:04 PM PT Interpreting Station ID: [id number]
== END ==
LOC: MAMMO 09:31
PROVIDERS: PCP Family Medicine; Referring Provider Family Medicine; Visit Provider Family Medicine
DX: Z12.31 Encounter for screening mammogram for malignant neoplasm of breast (principal); R92.333 Mammographic heterogeneous density, bilateral breasts; Z98.82 Breast implant status
CPT/HCPCS: 77063; 77067

== ENCOUNTER → 2025-03-18 18:42 | Outpatient (CLI) | payer OTHER, SELFPAY ==
--- NOTE | 2025-03-18 18:57 | DI.MRI.S_ITS ---
PROCEDURE: MR SHOULDER LT WO CON INDICATIONS: r/o rtc tear TECHNIQUE: Noncontrast oblique coronal T2 fast spin echo with fat saturation, oblique sagittal T1 spin echo and T2 fast spin echo with fat saturation, axial T1 spin echo and T2 fast spin echo with fat saturation through the shoulder. COMPARISON: [facility], MR, MR SHOULDER RT WO CON, 01/04/2023, 17:25. [facility], CR, XR SHOULDER RT 2+ VIEWS, 03/04/2025, 13:05. FINDINGS: Quality: Adequate. Tendons: Rotator cuff tendons: Less than 50 percent thickness interstitial insertional tear supraspinatus tendon. Approximately 50 percent thickness articular insertional tear of infraspinatus tendon. Teres minor tendon is intact. Less than 25 percent thickness interstitial insertional tear of the superior subscapularis tendon. Long head of biceps tendon: Tendon sheath distended by fluid. No dislocation. Increased interstitial signal in the rotator interval. Muscles: No disproportionate fatty degeneration of the rotator cuff musculature. Acromioclavicular joint: Mild osteoarthritis. Glenohumeral joint: Labrum: Diffuse labral degeneration with posterior labral detachment. Cartilage: Full-thickness cartilage loss along a broad region of the posterior glenoid and medial humeral head. Fluid: Small effusion. Capsule: No pericapsular inflammation or scarring. Alignment: No dislocation. Bursa: Subacromial/subdeltoid bursa: Trace fluid Subcoracoid bursa: Nondistended. Bones: No fracture. Prominent subcortical cysts in the greater tuberosity of the humerus. IMPRESSION: Severe glenohumeral osteoarthritis with labral tearing. Mild acromioclavicular osteoarthritis. Intermediate-grade partial-thickness supraspinatus and infraspinatus tendon tears. Low-grade partial-thickness subscapularis tendon tear. Long head biceps tendinopathy. Mild subacromial/subdeltoid bursitis. Dictated by: Amadou Bellamy M.D. on 03/19/2025 at 8:41 Approved by: Amadou Bellamy M.D. on 03/19/2025 at 8:47
== END ==
LOC: MRI 18:42
PROVIDERS: PCP Family Medicine; Referring Provider Orthopaedic Surgery; Visit Provider Orthopaedic Surgery
DX: M75.112 Incomplete rotator cuff tear or rupture of left shoulder, not specified as traumatic (principal); M19.012 Primary osteoarthritis, left shoulder; S43.492A Other sprain of left shoulder joint, initial encounter; M75.52 Bursitis of left shoulder; M25.512 Pain in left shoulder
CPT/HCPCS: 73221

== ENCOUNTER → 2025-05-26 15:48 | Outpatient (CLI) | payer OTHER, SELFPAY ==
--- NOTE | 2025-05-26 15:49 | DI.RAD.S_ITS ---
PROCEDURE: FL JOINT INJECTION LARGE LT INDICATIONS: osteoarthritis COMPARISON: None. TECHNIQUE: The indications, alternatives, benefits, risks, and complications of the procedure were explained to the patient. Written informed consent was obtained and placed in the chart. The patient was placed in an appropriate position on the fluoroscopy table, and a site was chosen for percutaneous access under fluoroscopic guidance. The site was prepped and draped in a sterile fashion. Local anesthetic was administered using a 1% lidocaine solution. A hypodermic or spinal needle was then used to access the symptomatic joint. Intra-articular location of the needle tip was confirmed by injecting a small amount of contrast, followed by steroid administration. The needle was then withdrawn, and a bandage applied to the puncture site. FINDINGS: Joint injected: Left shoulder Medications injected: 4 mL of 40 mg/mL Kenalog and 0.5% Ropivacaine mixture. Patient's pain before injection: 7 out of 10. Patient's pain after injection: 5 out of 10. Complications: None. IMPRESSION: Successful fluoroscopically guided administration of steroid and anaesthetic solution into the left shoulder joint. Dictated by: Jayden Arguelles M.D. on 05/27/2025 at 9:13 Approved by: Jayden Arguelles M.D. on 05/27/2025 at 9:14
[2025-05-26] MEDS: TRIAMCINOLONE 40 MG/ML VIAL INTRA-ARTI (17:03)
[2025-05-26] MEDS: LIDOCAINE 1% 20 ML INJ (17:03)
== END ==
LOC: RAD 15:48
PROVIDERS: PCP Family Medicine; Referring Provider Orthopaedic Surgery; Visit Provider Orthopaedic Surgery
DX: M19.012 Primary osteoarthritis, left shoulder (principal)
CPT/HCPCS: 20610; 77002; Q9967

== ENCOUNTER → 2025-06-01 13:33 | Outpatient (CLI) | payer OTHER, SELFPAY ==
--- NOTE | 2025-06-01 13:34 | DI.RAD.S_ITS ---
PROCEDURE: XR WRIST LT MIN 3V INDICATIONS: injury fall, wrist pain TECHNIQUE: Four views of the wrist were acquired. COMPARISON: None. FINDINGS: Bones: No fractures or dislocations. No suspicious bony lesions. Subcortical cystic changes and mild hypertrophic osteophytosis at the 1st CMC joint. Triscaphe sclerosis and subcortical cystic change. Mild osteoarthritic changes at the 1st MCP joint. Soft tissues: No suspicious soft tissue calcifications. IMPRESSION: No radiographic evidence of acute fracture. If there is continued concern for occult fracture, immobilization and reimaging in 7-10 days is recommended. Moderate osteoarthritic change at the 1st CMC joint. Dictated by: Elena Downing M.D. on 06/01/2025 at 22:14 Approved by: Elena Downing M.D. on 06/01/2025 at 22:16
== END ==
PROVIDERS: PCP Family Medicine; Referring Provider Internal Medicine; Visit Provider Internal Medicine
DX: S60.212A Contusion of left wrist, initial encounter (principal); M25.532 Pain in left wrist; M25.432 Effusion, left wrist; W19.XXXA Unspecified fall, initial encounter
CPT/HCPCS: 73110